=== PATIENT | male | born 1950 | race Caucasian/White ===

== ENCOUNTER 2021-02-04 20:19 | Emergency (ER) | payer MEDICARE ==
--- NOTE | 2021-02-04 20:57 | EDM.PDOC ---
ED HPI GENERAL MEDICAL PROBLEM - General Stated Complaint: [place] REFERRAL, GROIN PAIN Time Seen by Provider: 02/04/21 20:21 - History of Present Illness INITIAL COMMENTS - FREE TEXT/NARRATIVE: 70-year-old male with a history of prostate problems who has to self cath for urination who is presenting with gradually worsening right-sided testicular pain and swelling that started a little bit 24 hours ago and is gradually increased. It was 10 out of 10 prior to receiving hydrocodone [place]. Patient was referred here for ultrasound of the testes. He also has a history of CHF. Symptoms constant gradually worsening he denies dysuria or hematuria he denies any exacerbating or alleviating factors the pain radiates into the right inguinal region. penis Pain Score (Numeric/FACES): 10 - Related Data Allergies Allergy/AdvReac Type Severity Reaction Status Date / Time No Known Allergies Allergy Verified 02/04/21 21:15 Home Meds: Home Meds . [Unable to Verify Home Med List] 02/04/21 [History] ED ROS GENERAL - Review of Systems Review Of Systems: See Below Free Text/Narrative/Comment: General: No fever. Skin: No rash. Eyes: No vision problems. ENT: No sore throat. Neck: No neck stiffness. Respiratory: No shortness of breath. Cardiac: No chest pain. Gastrointestinal: No nausea, vomiting or abdominal pain. Urinary: Per HPI Musculoskeletal: No myalgias/arthralgias. Neurologic: No headache. ED EXAM, GENERAL - Physical Exam Exam: See Below Free Text/Narrative:: General Appearance: No acute distress, appears comfortable Skin: No rash HEENT: Normocephalic/atraumatic, sclera anicteric, mucous membranes moist Neck: Normal range of motion Chest and Lungs: Bilateral breath sounds, clear to auscultation Cardiovascular: Regular rate and rhythm, no murmur Abdomen: Soft, non-tender : Bilaterally distended testicles the left testicle is normal in size is nontender. The right hemiscrotum is swollen there is a palpable mass in the testicle is generally tender it is not [place] there is no palpable mass in the right inguinal canal the glans is normal in appearance without discharge Musculoskeletal: No edema or tenderness Neurologic: Awake, alert, no obvious deficits, moving all extremities Psychiatric: Appropriate, cooperative Course - Vital Signs Last Recorded V/S: Last Vital Signs Temp 97.0 F 02/04/21 20:50 Pulse 71 02/04/21 23:42 Resp 16 02/04/21 20:50 BP 160/91 H 02/04/21 23:42 Pulse Ox 95 02/04/21 23:42 - Orders/Labs/Meds Orders: Active Orders 24 hr Category Date Time Status Scrotal Duplex Ltd [US] Routine Exams 02/04/21 21:00 Taken Labs: Laboratory Tests 02/04/21 02/04/21 02/04/21 Range/Units 22:24 22:38 22:38 WBC 17.32 H (4.0-11.0) K/uL RBC 6.15 H (4.50-5.90) M/uL Hgb 13.1 (13.0-17.0) g/dL Hct 40.2 (38.0-50.0) % MCV 65.4 L (80.0-98.0) fL MCH 21.3 L (27.0-32.0) pg MCHC 32.6 (31.0-37.0) g/dL RDW Std Deviation 37.0 (28.0-62.0) fl RDW Coeff of Dolly 16 H (11.0-15.0) % Plt Count 179 (150-400) K/uL MPV 10.40 (7.40-12.00) fL Neut % (Auto) 83.1 H (48.0-80.0) % Lymph % (Auto) 10.3 L (16.0-40.0) % [place] % (Auto) 6.4 (0.0-15.0) % Eos % (Auto) 0.1 (0.0-7.0) % Baso % (Auto) 0.1 (0.0-1.5) % Neut # (Auto) 14.4 H (1.4-5.7) K/uL Lymph # (Auto) 1.8 (0.6-2.4) K/uL [place] # (Auto) 1.1 H (0.0-0.8) K/uL Eos # (Auto) 0.0 (0.0-0.7) K/uL Baso # (Auto) 0.0 (0.0-0.1) K/uL Nucleated RBC % 0.0 /100WBC Nucleated RBCs # 0 K/uL Sodium 138 (136-148) mmol/L Potassium 3.7 (3.5-5.1) mmol/L Chloride 101 (98-107) mmol/L Carbon Dioxide 29.4 (21.0-32.0) mmol/L BUN 17 (7.0-18.0) mg/dL Creatinine 1.2 (0.8-1.3) mg/dL Est Cr Clr Drug Dosing 55.42 mL/min Estimated GFR (MDRD) 59.9 ml/min Glucose 143 H (74-106) mg/dL Calcium 8.4 L (8.5-10.1) mg/dL Urine Color DARK YELLOW Urine Appearance CLOUDY Urine pH 7.5 (5.0-8.0) Ur Specific [place] 1.020 (1.001-1.035) Urine Protein 30 H (NEGATIVE) mg/dL Urine Glucose (UA) NEGATIVE (NEGATIVE) mg/dL Urine Ketones NEGATIVE (NEGATIVE) mg/dL Urine Occult Blood LARGE H (NEGATIVE) Urine Nitrite NEGATIVE (NEGATIVE) Urine Bilirubin NEGATIVE (NEGATIVE) Urine Urobilinogen 1.0 (<2.0) EU/dL Ur Leukocyte Esterase MODERATE H (NEGATIVE) Urine RBC TOO NUMEROUS TO CT (0-2/HPF) Urine WBC TO NUMEROUS TO COUNT H (0-5/HPF) Ur Epithelial Cells MODERATE (NONE-FEW) Urine Bacteria 4+ H (NEGATIVE) Urine Mucus LIGHT (NONE-MOD) Meds: Medications Discontinued Medications Generic Name Dose Route Start Last Admin Trade Name Freq PRN Reason Stop Dose Admin Levofloxacin 500 mg 02/04/21 23:39 02/04/21 23:44 Levofloxacin 500 Mg Tab PO 02/04/21 23:40 500 mg ONETIME ONE Administration Departure - Departure Time of Disposition: 23:33 Disposition: Home, Self-Care 01 Condition: Good Clinical Impression: Epididymo-orchitis without abscess - Discharge Information *PRESCRIPTION DRUG MONITORING PROGRAM REVIEWED*: Not Applicable *COPY OF PRESCRIPTION DRUG MONITORING REPORT IN PATIENT ANGELIQUE: Not Applicable Instructions: Orchitis Referrals: Lobito Martinez PA [Primary Care Provider] - Forms: ED Department Discharge Additional Instructions: Your ultrasound this evening showed a right-sided epididymoorchitis. You have already been given an antibiotic by the other doctor for today. This infection is typically treated with a medication called levofloxacin 500 mg once daily for 10 days. I know the doctor in [place] has plan to prescribe the antibiotic already. I have also given you a paper prescription for levofloxacin. If you have worsening pain ongoing fevers or worsening swelling please call your doctor zeeshan hurley or return to the ER for an ultrasound. The following information is given to patients seen in the emergency department who are being discharged to home. This information is to outline your options for follow-up care. We provide all patients seen in our emergency department with a follow-up referral. The need for follow-up, as well as the timing and circumstances, are variable depending upon the specifics of your emergency department visit. If you don't have a primary care physician on staff, we will provide you with a referral. We always advise you to contact your personal physician following an emergency department visit to inform them of the circumstance of the visit and for follow-up with them and/or the need for any referrals to a consulting specialist. The emergency department will also refer you to a specialist when appropriate. This referral assures that you have the opportunity for follow-up care with a specialist. All of these measure are taken in an effort to provide you with optimal care, which includes your follow-up. Under all circumstances we always encourage you to contact your private physician who remains a resource for coordinating your care. When calling for follow-up care, please make the office aware that this follow-up is from your recent emergency room visit. If for any reason you are refused follow-up, please contact the [facility] Emergency Department at and asked to speak to the emergency department charge nurse. Sepsis Event Note (ED) - Focused Exam Vital Signs: Vital Signs Temp Pulse Resp BP Pulse Ox 02/04/21 23:42 71 160/91 H 95 02/04/21 22:25 58 L 147/83 H 96 02/04/21 20:50 97.0 F 61 16 150/91 H 94 L - My Orders Last 24 Hours: My Active Orders 02/04/21 21:00 Scrotal Duplex Ltd [US] Routine - Assessment/Plan Last 24 Hours: My Active Orders 02/04/21 21:00 Scrotal Duplex Ltd [US] Routine Assessment:: 70-year-old male presenting with right-sided hemiscrotal pain and swelling. Testicular torsion is possible. However, given clinical presentation I would favor orchitis or epididymitis inguinal hernia possible as well. Patient's pain currently controlled by p.o. pain medicine from prior facility. Ultrasound CBC BMP and urinalysis pending. 2332: Right-sided testicular ultrasound demonstrates epididymoorchitis. Labs do show expected leukocytosis to 17. Patient states that he was given an injection of an antibiotic by the doctor in [place]. Dr. Dominguez also stated that he would prescribe an antibiotic tomorrow. Patient tolerating p.o. he otherwise feels well. Clearly has follow-up scheduled strict return precautions were discussed and understood.
--- NOTE | 2021-02-04 22:11 | US ---
CLINICAL HISTORY: Right pain and swelling TECHNIQUE: Hernandez scale imaging was performed of the scrotum. In addition color Doppler and spectral Doppler analysis was performed of the testes. FINDINGS: The right testis measures 5.3 x 2.5 x 2.7 cm in size and the left testis measures 4.0 x 3 x 2.9 cm. No intra testicular mass. The left epididymis is unremarkable. Increased vascularity within the right testis echotexture appears fairly homogeneous. Small hydrocele on the right. Increased vascularity of the right epididymis which appears slightly enlarged compared to left the epididymis. IMPRESSION: Increased vascularity of the right testis and epididymis which appears slightly heterogeneous and enlarged compared to the left. Findings probably reflect epididymo-orchitis. Small right hydrocele. Dictated by Pavithra Hu MD @ 02/04/2021 10:10:[address] Pavithra Hu @ Feb 04 2021 10:10PM
[2021-02-04 23:00] LABS: CARBON DIOXIDE,CO2 29.4 mmol/L (21.0-32.0); POTASSIUM,K 3.7 mmol/L (3.5-5.1)
[2021-02-04] MEDS ORDERED: Levofloxacin 500 MG Tab PO ONE (23:39)
--- NOTE | 2021-02-05 15:33 | US ---
EXAM DATE: 02/04/21 PATIENT'S AGE: 70 Patient: GILBERTO ALAS Facility: [facility] Site . Site : 1950 Study: US-Testicle -02/04/2021 9:42:28 PM Ordering Physician: Breezy Carias Final Report: CLINICAL HISTORY: Right pain and swelling TECHNIQUE: Hernandez scale imaging was performed of the scrotum. In addition color Doppler and spectral Doppler analysis was performed of the testes. FINDINGS: The right testis measures 5.3 x 2.5 x 2.7 cm in size and the left testis measures 4.0 x 3 x 2.9 cm. No intra testicular mass. The left epididymis is unremarkable. Increased vascularity within the right testis echotexture appears fairly homogeneous. Small hydrocele on the right. Increased vascularity of the right epididymis which appears slightly enlarged compared to left the epididymis. IMPRESSION: Increased vascularity of the right testis and epididymis which appears slightly heterogeneous and enlarged compared to the left. Findings probably reflect epididymo-orchitis. Small right hydrocele. Dictated by Pavithra Hu MD @ 02/04/2021 10:10:20 PM Signed by: Pavithra Hu MD @02/04/2021 10:10:20 PM (Electronic Signature) Report Signed by Proxy. [facility]ITALVirgen
== END 2021-02-04 23:46 | disposition home or self-care (01) ==
LOC: MW.ED 20:19
DX: N45.3 Epididymo-orchitis (principal)
CPT/HCPCS: 36415; 76870; 80048; 81001; 85025; 93976; 99284; A9270; 99283